=== PATIENT | female | born 1940 | race Caucasian/White ===

== ENCOUNTER 2017-08-07 16:52 | Inpatient (IN) | payer OTHER, BC ==
[~2017-08-07] VITALS: Ht 157.5 cm; Wt 49.9 kg
[~2017-08-07 16:52] MED LIST: FOLIC ACID1 MG PO; HUMULIN N100 UNIT/2 SC; HUMULIN R100 UNITS/ SC; ISOSORBIDE MONO10 M1 PO; MAXZIDE 75/501 EACH PO; MICRO-K10 ME2 PO; PANTOPRAZOLE SO40 MG PO; PLAQUENIL200 MG PO; SYNTHROID125 MCG PO; VERAPAMIL HCL240 M1 PO
[2017-08-07 17:51] LABS: EOSINOPHIL (%) 2.6 % (0-5); EOSINOPHIL COUNT 0.3 K/uL (0-0.3); HEMATOCRIT 35.8 % (36.0-46.0); IMMATURE GRANULOCYTE (%) 0.3 % (0.0-0.7); INSTRUMENT ABS NEUTROPHIL CT 6.4 K/uL; LYMPHOCYTE COUNT 2.4 K/uL (1.0-2.8); MCH 30.2 PG (29.0-34.0); MCV 91.6 FL (83-99); MEAN PLAT.VOLUME 8.6 uM^3 (9.5-12.4); MONOCYTE COUNT 0.6 K/uL (0-0.8); NEUTROPHIL (%) 66.5 % (45-76); NEUTROPHIL COUNT 6.4 K/uL (1.8-6.4); PLATELET COUNT 322 K/uL (156-360); RBC DIS.WIDTH-CV 12.3 % (11.8-14.6); RBC DIS.WIDTH-SD 41.2 % (39-53); RED BLOOD COUNT 3.91 M/uL (3.80-5.20); WHITE BLOOD COUNT 9.7 K/uL (4.1-10.2)
[2017-08-07 17:59] LABS: INTER. NORMALIZED RATIO 1.1; PROTHROMBIN TIME 11.7 SEC (10.2-12.9)
[2017-08-07 18:01] LABS: CHLORIDE 102 mEq/L (99-109); POTASSIUM 4.2 mEq/L (3.7-5.4); SODIUM 139 mEq/L (136-147)
[2017-08-07 18:02] LABS: PTT 31.4 SEC (25-37)
[2017-08-07 18:03] LABS: GLUCOSE 240 mg/dL (70-99)
[2017-08-07 18:04] LABS: ANION GAP 10 MEQ/L (2-14)
[2017-08-07 18:07] LABS: GFR ESTIMATE (CALCULATED) 36 mL/min/
[2017-08-07 18:08] LABS: UREA NITROGEN (BUN) 25 mg/dL (9-23)
[2017-08-07 18:10] LABS: CREATINE KINASE 655 IU/L (1-294); LIPASE 11 U/L (1.0-51.0); TOTAL CK 655 IU/L (1-294)
[2017-08-07 18:13] LABS: TROP-I INTERPRETATION NEGATIVE; TROPONIN-I 0.02 ng/mL (0.0-0.30)
[2017-08-07 18:16] LABS: CK-MB 6.7 ng/mL (0.0-4.9)
[2017-08-07 18:18] LABS: ADD MIUA? NO; BILIRUBIN NEGATIVE; BLOOD NEGATIVE; COLOR YELLOW ((YELLOW)); GLUCOSE (STRIP) NEGATIVE; KETONES NEGATIVE; LEUKOCYTES NEGATIVE; NITRITE NEGATIVE; PROTEIN (STRIP) NEGATIVE; UROBILINOGEN 0.2 MG/DL (0.2-1.0)
[2017-08-07 18:24] LABS: TOTAL BILIRUBIN 0.3 mg/dL (0.0-1.0)
[2017-08-07 18:25] LABS: ALKALINE PHOSPHATASE 89 IU/L (3-129)
[2017-08-07 18:25] LABS: UCUL ADDED? NO
[2017-08-07 18:27] LABS: DIRECT BILIRUBIN 0.1 mg/dL (0.0-0.3)
[2017-08-07] MEDS ORDERED: EFFEXOR XR37.5 MG PO (21:42)
[2017-08-07] MEDS ORDERED: CIPRO500 MG PO (21:42)
[2017-08-08 01:44] LABS: HDL CHOLESTEROL 42 MG/DL (Desirable>=50); LDL CHOLESTEROL 164 mg/dL (Desirable<100); NON-HDL CHOLESTEROL 186 mg/dL (Desirable<160); TOTAL CHOLESTEROL 228 mg/dL (Desirable<200); TRIGLYCERIDES 110 MG/DL (Normal: <150)
[2017-08-08 02:28] VITALS: BP 156/61
[2017-08-08 06:27] LABS: HEMATOCRIT 33.6 % (36.0-46.0); MCH 29.9 PG (29.0-34.0); MCHC 32.7 G/DL (30.0-36.0); MCV 91.3 FL (83-99); PLATELET COUNT 326 K/uL (156-360); RBC DIS.WIDTH-CV 12.2 % (11.8-14.6); RBC DIS.WIDTH-SD 41.1 % (39-53); RED BLOOD COUNT 3.68 M/uL (3.80-5.20); WHITE BLOOD COUNT 9.5 K/uL (4.1-10.2)
[2017-08-08 06:45] LABS: ANION GAP 5 MEQ/L (2-14); CHLORIDE 103 MEQ/L (99-109); GFR ESTIMATE (CALCULATED) 39 mL/min/; GLUCOSE 166 mg/dL (70-99); POTASSIUM 3.9 MEQ/L (3.7-5.4); SAMPLE HEMOLYSIS CHECK 0; SAMPLE ICTERIC CHECK 0; SAMPLE LIPEMIA CHECK 0; SODIUM 141 MEQ/L (136-147); UREA NITROGEN (BUN) 24 mg/dL (9-23)
[2017-08-08 07:08] LABS: Estimated Average Glucose 217 mg/dL (70-123); HEMOGLOBIN A1c (GLYCOHEMOGLOB) 9.2 % HGB (Below 5.7)
[2017-08-08 08:46] VITALS: BP 154/67
[2017-08-08 09:04] LABS: POINT-OF-CARE METER ID UU14174225
[2017-08-08 11:37] VITALS: BP 137/68
[2017-08-08 12:26] LABS: POINT-OF-CARE METER ID UU13113717
[2017-08-08 17:10] LABS: POINT-OF-CARE METER ID UU13113717
[2017-08-08 20:04] VITALS: BP 108/61
[2017-08-08 21:19] LABS: AMPHETAMINES QUANT VALUE 0 NG/ML; BARBITUATES QUANT VALUE 0 NG/ML; BENZODIAZEPINES QUANT VALUE 0 NG/ML; BENZODIAZEPINES, URINE SCREEN Negative (200 ng/mL); MARIJUANA QUANT VALUE 0 NG/ML; PHENCYCLIDINE QUANT VALUE 0 NG/ML
[2017-08-08 21:33] LABS: POINT-OF-CARE METER ID UU14174225
[2017-08-08 23:47] VITALS: BP 128/60
[2017-08-09 06:26] LABS: HEMATOCRIT 31.7 % (36.0-46.0); MCH 29.9 PG (29.0-34.0); MCHC 32.5 G/DL (30.0-36.0); MCV 92.2 FL (83-99); MEAN PLAT.VOLUME 8.8 uM^3 (9.5-12.4); PLATELET COUNT 300 K/uL (156-360); RBC DIS.WIDTH-CV 12.3 % (11.8-14.6); RBC DIS.WIDTH-SD 41.4 % (39-53); RED BLOOD COUNT 3.44 M/uL (3.80-5.20); WHITE BLOOD COUNT 9.2 K/uL (4.1-10.2)
[2017-08-09 06:47] LABS: ANION GAP 6 MEQ/L (2-14); CHLORIDE 101 MEQ/L (99-109); CREATINE KINASE 175 IU/L (1-294); GFR ESTIMATE (CALCULATED) 36 mL/min/; GLUCOSE 189 mg/dL (70-99); POTASSIUM 4.4 MEQ/L (3.7-5.4); SAMPLE HEMOLYSIS CHECK 0; SAMPLE ICTERIC CHECK 0; SAMPLE LIPEMIA CHECK 0; SODIUM 136 MEQ/L (136-147); UREA NITROGEN (BUN) 25 mg/dL (9-23)
[2017-08-09 07:36] LABS: POINT-OF-CARE METER ID UU14174225
[2017-08-09 07:57] VITALS: BP 145/70
[2017-08-09 11:20] VITALS: BP 127/64
[2017-08-09 11:47] LABS: POINT-OF-CARE METER ID UU14174225
[2017-08-09 15:51] VITALS: BP 128/61
[2017-08-09 17:38] LABS: POINT-OF-CARE METER ID UU13113717
[2017-08-09 19:46] VITALS: BP 115/57
[2017-08-09 21:31] LABS: POINT-OF-CARE METER ID UU13113717
[2017-08-09 23:33] VITALS: BP 124/63
[2017-08-10] VITALS (7 sets, daily range): BP systolic 100–177; BP diastolic 57–76
[2017-08-10 07:09] LABS: HEMATOCRIT 29.8 % (36.0-46.0); MCH 31.5 PG (29.0-34.0); MCHC 34.9 G/DL (30.0-36.0); MCV 90.3 FL (83-99); MEAN PLAT.VOLUME 9.1 uM^3 (9.5-12.4); PLATELET COUNT 311 K/uL (156-360); RBC DIS.WIDTH-CV 12.4 % (11.8-14.6); RBC DIS.WIDTH-SD 40.7 % (39-53); WHITE BLOOD COUNT 9.3 K/uL (4.1-10.2)
[2017-08-10 07:37] LABS: ANION GAP 8 MEQ/L (2-14); CHLORIDE 100 MEQ/L (99-109); GFR ESTIMATE (CALCULATED) 26 mL/min/; GLUCOSE 158 mg/dL (70-99); POTASSIUM 4.8 MEQ/L (3.7-5.4); SAMPLE HEMOLYSIS CHECK 0; SAMPLE ICTERIC CHECK 0; SAMPLE LIPEMIA CHECK 0; SODIUM 133 MEQ/L (136-147); UREA NITROGEN (BUN) 30 mg/dL (9-23)
[2017-08-10 12:07] LABS: POINT-OF-CARE METER ID UU14188625
[2017-08-11 03:45] VITALS: BP 107/56
[2017-08-11 06:29] LABS: HEMATOCRIT 32.8 % (36.0-46.0); MCH 31.1 PG (29.0-34.0); MCHC 34.8 G/DL (30.0-36.0); MCV 89.6 FL (83-99); MEAN PLAT.VOLUME 9.3 uM^3 (9.5-12.4); PLATELET COUNT 365 K/uL (156-360); RBC DIS.WIDTH-CV 12.3 % (11.8-14.6); RED BLOOD COUNT 3.66 M/uL (3.80-5.20); WHITE BLOOD COUNT 9.2 K/uL (4.1-10.2)
[2017-08-11 06:51] LABS: ANION GAP 7 MEQ/L (2-14); CHLORIDE 99 MEQ/L (99-109); GFR ESTIMATE (CALCULATED) 23 mL/min/; GLUCOSE 134 mg/dL (70-99); POTASSIUM 4.5 MEQ/L (3.7-5.4); SAMPLE HEMOLYSIS CHECK 0; SAMPLE ICTERIC CHECK 0; SAMPLE LIPEMIA CHECK 0; SODIUM 133 MEQ/L (136-147); UREA NITROGEN (BUN) 28 mg/dL (9-23)
[2017-08-11 07:37] LABS: POINT-OF-CARE METER ID UU13113717
[2017-08-11 07:53] VITALS: BP 123/57
[2017-08-11 12:17] VITALS: BP 106/55
[2017-08-11 15:56] VITALS: BP 121/59
[2017-08-11 17:11] LABS: POINT-OF-CARE METER ID UU13113717
[2017-08-11 19:49] VITALS: BP 128/66
[2017-08-11 21:48] LABS: POINT-OF-CARE METER ID UU14188625
[2017-08-11 23:40] VITALS: BP 130/64
[2017-08-12 06:22] LABS: HEMATOCRIT 29.2 % (36.0-46.0); MCHC 34.2 G/DL (30.0-36.0); MCV 90.4 FL (83-99); MEAN PLAT.VOLUME 9.3 uM^3 (9.5-12.4); PLATELET COUNT 350 K/uL (156-360); RBC DIS.WIDTH-CV 12.4 % (11.8-14.6); RBC DIS.WIDTH-SD 40.8 % (39-53); RED BLOOD COUNT 3.23 M/uL (3.80-5.20); WHITE BLOOD COUNT 9.5 K/uL (4.1-10.2)
[2017-08-12 06:45] LABS: ANION GAP 7 MEQ/L (2-14); CHLORIDE 100 MEQ/L (99-109); GFR ESTIMATE (CALCULATED) 26 mL/min/; GLUCOSE 140 mg/dL (70-99); POTASSIUM 4.3 MEQ/L (3.7-5.4); SAMPLE HEMOLYSIS CHECK 0; SAMPLE ICTERIC CHECK 0; SAMPLE LIPEMIA CHECK 0; SODIUM 132 MEQ/L (136-147); UREA NITROGEN (BUN) 23 mg/dL (9-23)
[2017-08-12 07:47] LABS: POINT-OF-CARE METER ID UU14188625
[2017-08-12 08:25] VITALS: BP 113/64
[2017-08-12 16:09] VITALS: BP 103/56
[2017-08-12] MEDS ORDERED: Chronulac,Cephulac,E PO (17:18)
[2017-08-12] MEDS ORDERED: SYNTHROID137 MCG PO (17:19)
== END 2017-08-12 21:00 | DRG 682 ==
LOC: EME 16:52 → 5SOUTH 23:15 → EDOF 23:15 → ENRESERV 23:18 → 5SOUTH 08-08 02:10
PROVIDERS: Emergency Medicine; Hospitalist; Physician Assistant; Physician Assistant Medical
DX: N17.9 Acute kidney failure, unspecified (principal); G93.41 Metabolic encephalopathy; M62.82 Rhabdomyolysis; I12.9 Hypertensive chronic kidney disease with stage 1 through stage 4 chronic kidney disease, or unspecified chronic kidney disease; E11.22 Type 2 diabetes mellitus with diabetic chronic kidney disease; N18.3 Chronic kidney disease, stage 3 (moderate); D64.9 Anemia, unspecified; E03.9 Hypothyroidism, unspecified; F03.90 Unspecified dementia, unspecified severity, without behavioral disturbance, psychotic disturbance, mood disturbance, and anxiety; I25.10 Atherosclerotic heart disease of native coronary artery without angina pectoris; I49.3 Ventricular premature depolarization; J44.9 Chronic obstructive pulmonary disease, unspecified; K59.09 Other constipation; Z96.612 Presence of left artificial shoulder joint; G43.909 Migraine, unspecified, not intractable, without status migrainosus; K21.9 Gastro-esophageal reflux disease without esophagitis; Z86.73 Personal history of transient ischemic attack (TIA), and cerebral infarction without residual deficits; Z86.718 Personal history of other venous thrombosis and embolism; Z79.4 Long term (current) use of insulin; Z91.040 Latex allergy status; Z88.1 Allergy status to other antibiotic agents; Z88.2 Allergy status to sulfonamides
CPT/HCPCS: 70450; 71010; 76770; 80048; 80061; 80069; 80076; 80306 90; 81003; 82140; 82550; 82553; 82607; 82948; 83036; 83605; 83690; 83880; 84443; 84484; 85025; 85027; 85610; 85730; 92523 GN; 92610 GN; 93005; 93880; 95819; 97530 GP; 99281; 99285; J1200; J1630; J1644; J1815; J2060; J2405; J2765; J7030

== ENCOUNTER 2017-08-15 14:13 | Inpatient (IN) | payer OTHER, BC ==
[~2017-08-15] VITALS: Ht 160 cm; Wt 53.0 kg
[~2017-08-15 14:13] MED LIST changes: +CIPRO500 MG PO; +Chronulac,Cephulac,E PO; +EFFEXOR XR37.5 MG PO; +SYNTHROID137 MCG PO
[2017-08-15 16:41] LABS: HEMATOCRIT 42.3 % (36.0-46.0); MCH 30.7 PG (29.0-34.0); MCHC 31.7 G/DL (30.0-36.0); RBC DIS.WIDTH-CV 13.1 % (11.8-14.6); RBC DIS.WIDTH-SD 46.8 % (39-53); RED BLOOD COUNT 4.37 M/uL (3.80-5.20); WHITE BLOOD COUNT 9.4 K/uL (4.1-10.2)
[2017-08-15 16:46] LABS: MCV 96.8 FL (83-99)
[2017-08-15 16:49] LABS: CHLORIDE 104 mEq/L (99-109); POTASSIUM 5.1 mEq/L (3.7-5.4)
[2017-08-15 16:50] LABS: SODIUM 139 mEq/L (136-147)
[2017-08-15 16:53] LABS: ANION GAP 23 MEQ/L (2-14)
[2017-08-15 16:54] LABS: TOTAL BILIRUBIN 0.7 mg/dL (0.0-1.0)
[2017-08-15 16:55] LABS: ALKALINE PHOSPHATASE 257 IU/L (3-129); GFR ESTIMATE (CALCULATED) 17 mL/min/; GLUCOSE 120 mg/dL (70-99)
[2017-08-15 16:57] LABS: UREA NITROGEN (BUN) 36 mg/dL (9-23)
[2017-08-15 16:59] LABS: LIPASE 27 U/L (1.0-51.0)
[2017-08-15 17:35] LABS: ADD MIUA? YES; BILIRUBIN NEGATIVE; BLOOD NEGATIVE; COLOR AMBER ((YELLOW)); GLUCOSE (STRIP) NEGATIVE; KETONES NEGATIVE; LEUKOCYTES LARGE; NITRITE NEGATIVE; PROTEIN (STRIP) 30; SPECIFIC GRAVITY 1.012 (1.000-1.030)
[2017-08-15 17:41] LABS: BACTERIA 2+ /HPF; CALCIUM OXALATE CRYSTALS 1+ /HPF; EPITHELIAL CELLS RARE /HPF; HYALINE CASTS 0-5 /LPF; MUCUS NONE SEEN /LPF; RED BLOOD CELLS 0-5 /HPF (0-5); UNCLASSIFIED CASTS 0-5 /LPF; WHITE BLOOD CELLS 40-50 /HPF (0-5)
[2017-08-15 18:09] LABS: ABS NEUTROPHIL COUNT 6.7; ANISOCYTOSIS 1+; ATYPICAL LYMPHOCYTE 1.8 %; BURR CELLS 1+; EOSINOPHIL ABS CT 0.1; EOSINOPHILS 0.9 % (0-5.0); HEMATOLOGY COMMENT 1 SN; INSTRUMENT ABS NEUTROPHIL CT 7.7 K/uL; LYMPHOCYTES 15.2 % (15.0-45.0); METAMYELOCYTES 5.3 %; MICROCYTOSIS 1+; MYELOCYTES 0.9 %; POIKILOCYTOSIS 2+; POLYCHROMASIA 1+; SEG.NEUTROPHILS 21.4 % (46.0-76.0)
[2017-08-15 18:27] LABS: INTER. NORMALIZED RATIO 1.3; PROTHROMBIN TIME 13.9 SEC (10.2-12.9)
[2017-08-15 18:29] LABS: PTT 34.9 SEC (25-37)
[2017-08-15 18:43] LABS: TROP-I INTERPRETATION NEGATIVE; TROPONIN-I 0.04 ng/mL (0.0-0.30)
[2017-08-15 19:27] VITALS: BP 145/113
== END 2017-08-15 22:58 | DRG 853 ==
LOC: EME 14:13 → SDC 19:02 → ENRESERV 19:56 → 4WEST 22:54
PROVIDERS: Emergency Medicine
PROC: 0DTE0ZZ Resection of Large Intestine, Open Approach (ICD-10-PCS; principal; 2017-08-15)
PROC: 0D1B0Z4 Bypass Ileum to Cutaneous, Open Approach (ICD-10-PCS; 2017-08-15)
PROC: 3E1M38Z Irrigation of Peritoneal Cavity using Irrigating Substance, Percutaneous Approach (ICD-10-PCS; 2017-08-15)
PROC: 5A12012 Performance of Cardiac Output, Single, Manual (ICD-10-PCS; 2017-08-15)
PROC: 05HM33Z Insertion of Infusion Device into Right Internal Jugular Vein, Percutaneous Approach (ICD-10-PCS; 2017-08-15)
DX: A41.9 Sepsis, unspecified organism (principal); R65.21 Severe sepsis with septic shock; K55.049 Acute infarction of large intestine, extent unspecified; E87.2 Acidosis; K56.7 Ileus, unspecified; N17.9 Acute kidney failure, unspecified; E03.9 Hypothyroidism, unspecified; Z86.73 Personal history of transient ischemic attack (TIA), and cerebral infarction without residual deficits; Z66 Do not resuscitate; K63.89 Other specified diseases of intestine; J44.9 Chronic obstructive pulmonary disease, unspecified; E78.5 Hyperlipidemia, unspecified; I10 Essential (primary) hypertension; I25.10 Atherosclerotic heart disease of native coronary artery without angina pectoris; E11.9 Type 2 diabetes mellitus without complications; F03.90 Unspecified dementia, unspecified severity, without behavioral disturbance, psychotic disturbance, mood disturbance, and anxiety; K56.41 Fecal impaction; I46.2 Cardiac arrest due to underlying cardiac condition; R00.1 Bradycardia, unspecified; K66.8 Other specified disorders of peritoneum; Z86.718 Personal history of other venous thrombosis and embolism; J45.909 Unspecified asthma, uncomplicated; G43.909 Migraine, unspecified, not intractable, without status migrainosus; Z91.040 Latex allergy status; Z91.048 Other nonmedicinal substance allergy status; Z88.0 Allergy status to penicillin; Z88.6 Allergy status to analgesic agent; Z88.1 Allergy status to other antibiotic agents; Z88.5 Allergy status to narcotic agent; Z96.612 Presence of left artificial shoulder joint; Z88.2 Allergy status to sulfonamides
CPT/HCPCS: 71010; 74176; 80053; 81003; 83605; 83690; 84484; 85025 91; 85610; 85730; 86850; 86900; 86901; 87040; 87641; 88307; 93005; 94002; 99281; 99285; C1751; J0131; J0330; J1100; J1265; J1335; J1885; J2250; J2405; J3010